=== PATIENT | male | born 1985 | race Caucasian/White ===

== ENCOUNTER 2017-03-18 21:11 | Inpatient (IN) | payer OTHER ==
[~2017-03-18] VITALS: Ht 167.6 cm; Wt 78.0 kg
[2017-03-18 22:50] LABS: BASOPHIL % 0.4 % (0-2); PLATELET COUNT 230 x10^3mcL (130-400); RED CELL DISTRIBUTION WIDTH 13.3 % (11.5-14.5)
[2017-03-18 23:09] LABS: CALCIUM 7.9 mg/dL (8.5-10.1); CARBON DIOXIDE 21.8 mmol/L (21-32); CHLORIDE SERUM 99 mmol/L (98-107); CREATININE SERUM 1.1 mg/dL (0.7-1.3); GFR1 > 60 mL/min; GLUCOSE SERUM 214 mg/dL (74-106); POTASSIUM SERUM 3.7 mmol/L (3.5-5.1); SODIUM SERUM 134 mmol/L (136-145)
[2017-03-18 23:13] LABS: ALBUMIN 3.4 g/dL (3.4-5.0); ALKALINE PHOSPHATASE 84 U/L (46-116); ALT/SGPT 118 U/L (16-63); AMYLASE 66 U/L (25-115); AST/SGOT 33 U/L (15-37); BILIRUBIN TOTAL 0.6 mg/dL (0.20-1.00); LIPASE 183 IU/L (73-393); TOTAL PROTEIN, SERUM 6.2 g/dL (6.4-8.2)
[2017-03-19] MEDS ORDERED: RISPERIDONE1 MG PO (00:07)
[2017-03-19] MEDS ORDERED: BUSPIRONE HCL15 MG PO (00:09)
[2017-03-19] MEDS ORDERED: FLUOXETINE HCL10 MG PO (00:09)
[2017-03-19] MEDS ORDERED: SEROQUEL400 M1 PO (00:10)
[2017-03-19] MEDS ORDERED: DIVALPROEX SOD500 M3 PO (00:10)
[2017-03-19] MEDS ORDERED: BYDUREON PEN2 MG SC (00:14)
[2017-03-19] MEDS ORDERED: CLONAZEPAM1 MG PO (00:15)
[2017-03-19] MEDS ORDERED: METFORMIN HCL1000 MG PO (00:16)
[2017-03-19 00:38] LABS: CHOLESTEROL/HDL RATIO 2.4
[2017-03-19 00:42] LABS: T3 TOTAL 0.7 ng/mL
[2017-03-19 00:56] LABS: FREE T4 0.81 ng/dL (0.76-1.46); FREE THYROXINE INDEX 2.3 ug/dL (1.4-4.5); T4(THYROXINE) 6.4 ug/dL (4.7-13.3)
[2017-03-19 01:13] VITALS: BP 121/67
[2017-03-19 05:05] LABS: microscopic required? NO
[2017-03-19 05:17] LABS: UA SPECIFIC GRAVITY <=1.005 (1.005-1.035); urine erythrocyte NEGATIVE (NEGATIVE)
[2017-03-19 05:25] LABS: AMPHETAMINE QUAL UR NONE DETECTED (NEG <=1000)
[2017-03-19 06:19] LABS: BASOPHIL % 0.4 % (0-2); PLATELET COUNT 221 x10^3mcL (130-400); RED CELL DISTRIBUTION WIDTH 13.5 % (11.5-14.5)
[2017-03-19 06:24] VITALS: BP 112/68
[2017-03-19 07:03] LABS: CALCIUM 7.5 mg/dL (8.5-10.1); CARBON DIOXIDE 26.4 mmol/L (21-32); CHLORIDE SERUM 107 mmol/L (98-107); CREATININE SERUM 0.8 mg/dL (0.7-1.3); GFR1 > 60 mL/min; GLUCOSE SERUM 110 mg/dL (74-106); MAGNESIUM 1.8 mg/dL (1.8-2.4); PHOSPHOROUS 4.7 mg/dL (2.5-4.9); SODIUM SERUM 143 mmol/L (136-145)
[2017-03-19 10:15] VITALS: BP 112/70
[2017-03-19 13:48] VITALS: BP 117/70
[2017-03-19 18:08] VITALS: BP 111/62
[2017-03-19 21:32] VITALS: BP 122/70
[2017-03-20 05:37] VITALS: BP 124/76
[2017-03-20 06:15] LABS: BASOPHIL % 0.4 % (0-2); PLATELET COUNT 229 x10^3mcL (130-400); RED CELL DISTRIBUTION WIDTH 13.8 % (11.5-14.5)
[2017-03-20 06:38] LABS: CALCIUM 8.5 mg/dL (8.5-10.1); CARBON DIOXIDE 27.1 mmol/L (21-32); CHLORIDE SERUM 105 mmol/L (98-107); CREATININE SERUM 0.8 mg/dL (0.7-1.3); GFR1 > 60 mL/min; GLUCOSE SERUM 76 mg/dL (74-106); MAGNESIUM 1.8 mg/dL (1.8-2.4); POTASSIUM SERUM 4.5 mmol/L (3.5-5.1); SODIUM SERUM 141 mmol/L (136-145)
[2017-03-20 10:43] VITALS: BP 116/64
[2017-03-20 18:07] VITALS: BP 128/79
[2017-03-20 22:01] VITALS: BP 129/87
[2017-03-21 06:28] VITALS: BP 118/73
[2017-03-21 07:01] LABS: CALCIUM 8.7 mg/dL (8.5-10.1); CARBON DIOXIDE 24.7 mmol/L (21-32); CHLORIDE SERUM 102 mmol/L (98-107); CREATININE SERUM 0.9 mg/dL (0.7-1.3); GFR1 > 60 mL/min; GLUCOSE SERUM 98 mg/dL (74-106); MAGNESIUM 1.7 mg/dL (1.8-2.4); PHOSPHOROUS 5.5 mg/dL (2.5-4.9); SODIUM SERUM 140 mmol/L (136-145)
[2017-03-21 07:05] LABS: BASOPHIL % 0.2 % (0-2); PLATELET COUNT 259 x10^3mcL (130-400); RED CELL DISTRIBUTION WIDTH 13.7 % (11.5-14.5)
[2017-03-21 09:23] VITALS: BP 120/73
[2017-03-21 11:24] VITALS: BP 120/73
== END 2017-03-21 12:11 | disposition left against medical advice (07) | DRG 338 ==
LOC: ED 21:11 → DU 23:49 → MU 23:49 → DU 03-19 01:06 → MU 03-19 12:35
PROVIDERS: Emergency Medicine; Family Medicine; Surgery; ADMIT Family Medicine
PROC: 0DTJ4ZZ Resection of Appendix, Percutaneous Endoscopic Approach (ICD-10-PCS; principal; 2017-03-19 08:00)
DX: K35.3 Acute appendicitis with localized peritonitis (principal); N17.0 Acute kidney failure with tubular necrosis; E87.1 Hypo-osmolality and hyponatremia; D68.69 Other thrombophilia; F25.0 Schizoaffective disorder, bipolar type; F41.1 Generalized anxiety disorder; F41.0 Panic disorder [episodic paroxysmal anxiety]; F32.9 Major depressive disorder, single episode, unspecified; E11.65 Type 2 diabetes mellitus with hyperglycemia; D64.9 Anemia, unspecified; I10 Essential (primary) hypertension; E83.42 Hypomagnesemia; R00.0 Tachycardia, unspecified; Z68.27 Body mass index [BMI] 27.0-27.9, adult
CPT/HCPCS: 80307; 82962; 83880; 84439; 94150; J2175; J2250; J2270; J2405; J2543; J3010; J3490; J7030; J7042; Q0092

== ENCOUNTER 2017-03-28 09:23 | Emergency (ER) | payer OTHER ==
[~2017-03-28] VITALS: Ht 165.1 cm; Wt 75.3 kg
[~2017-03-28 09:23] MED LIST: BUSPIRONE HCL15 MG PO; BYDUREON PEN2 MG SC; CLONAZEPAM1 MG PO; DIVALPROEX SOD500 M3 PO; FLUOXETINE HCL10 MG PO; METFORMIN HCL1000 MG PO; RISPERIDONE1 MG PO; SEROQUEL400 M1 PO
[2017-03-28 09:51] VITALS: BP 148/75
== END 2017-03-28 10:36 | disposition home or self-care (01) ==
LOC: ED 09:23
DX: L02.212 Cutaneous abscess of back [any part, except buttock and flank] (principal)
CPT/HCPCS: J2001